=== PATIENT | male | born 1985 | race African-American/Black ===

== ENCOUNTER 2020-05-12 21:05 | Emergency (ER) | payer BC ==
[~2020-05-12] VITALS: Ht 182.9 cm; Wt 127.0 kg
[2020-05-12] MEDS ORDERED: IBUPROFEN 600MG TABLET PO ONE (22:45)
[2020-05-12 23:23] VITALS: BP 146/100
== END 2020-05-12 23:43 | disposition home or self-care (01) ==
LOC: ER 21:05
DX: M79.605 Pain in left leg (principal); M54.10 Radiculopathy, site unspecified; Z96.649 Presence of unspecified artificial hip joint
CPT/HCPCS: 93971; 99284